=== PATIENT | female | born 1955 | race African-American/Black ===

== ENCOUNTER 2018-07-17 20:54 | Emergency (ER) | payer MEDICAID, MEDICARE ==
[~2018-07-17] VITALS: Ht 160 cm; Wt 63.0 kg
[~2018-07-17 20:54] MED LIST: AMLO10TA4 PO; ASPI-1158 PO; ATOR10TA PO; INSU3INS6 SUBCUT; LORA-250 PO; LOSA50TA3 PO; METF-416 PO; QUET100T PO; TEMA15CA5 PO; TRIA1TAB94 PO
[2018-07-17] MEDS ORDERED: MORPHINE SULFATE 4 MG/ML CPJ (NOT FOR IM USE) IV STA (22:17)
[2018-07-17] MEDS ORDERED: ONDANSETRON HCL 4MG/2ML INJ IV STA (22:17)
[2018-07-17] MEDS ORDERED: ASPIRIN 81MG TABLET PO ONE (22:30)
[2018-07-17] MEDS ORDERED: SODIUM CHLORIDE 0.9% 1,000 ML IV ONE (22:37)
[2018-07-18 00:14] LABS: BASOPHILS % 1.2 % (0.0-2.0); EOSINOPHILS % 4.3 % (0.0-5.0); HEMATOCRIT. 33.8 % (36.0-48.0); HEMOGLOBIN. 10.9 g/dL (12.0-16.0); LYMPHOCYTES % 53.4 % (20.0-50.0); MEAN CORPUSCULAR HEMOGLOBIN 27.1 pg (28.0-32.0); MEAN CORPUSCULAR VOLUME 83.7 fL (81.0-99.0); MEAN PLATELET VOLUME 7.4 fl (7.4-10.4); MONOCYTES % 5.6 % (2.0-8.0); NEUTROPHILS % 35.5 % (40.0-76.0); PLATELET 312 x1000/uL (130-400); RED BLOOD CELL COUNT 4.04 mill/uL (4.2-5.4); RED CELL DISTRIBUTION WIDTH 15.8 % (11.6-14.6)
[2018-07-18 00:17] LABS: CHLORIDE 109 mEq/L (98-107)
[2018-07-18 00:18] LABS: INR 1.1; PARTIAL THROMBOPLASTIN TIME 28.9 sec (23.4-31.0); PROTHROMBIN TIME 11.3 sec (9.6-11.0)
[2018-07-18 00:22] LABS: ETHANOL BLOOD < 10 mg/dL
[2018-07-18 02:01] VITALS: BP 106/66
== END 2018-07-18 03:13 | disposition short-term general hospital (02) ==
LOC: ER 20:54 → EDBEDREQDT 07-18 00:20 → EDBEDREQTM 07-18 00:20 → EDBEDREQ 07-18 00:20 → ENRESERV 07-18 02:09 → CANRESERV 07-18 02:09 → CANBEDREQ 07-18 02:21 → ER 07-18 03:13
DX: R00.1 Bradycardia, unspecified (principal); R07.89 Other chest pain; M19.90 Unspecified osteoarthritis, unspecified site; J44.9 Chronic obstructive pulmonary disease, unspecified; E11.9 Type 2 diabetes mellitus without complications; I10 Essential (primary) hypertension; Z86.73 Personal history of transient ischemic attack (TIA), and cerebral infarction without residual deficits; Z86.711 Personal history of pulmonary embolism; Z79.4 Long term (current) use of insulin; Z79.899 Other long term (current) drug therapy; Z88.8 Allergy status to other drugs, medicaments and biological substances
CPT/HCPCS: 36415; 71045; 80053; 80320; 83690; 83880; 84484; 85025; 85610; 85730; 93005; 96374; 96375; 99285; J2270; J2405; J7030; G0480